=== PATIENT | female | born 1990 | race Caucasian/White ===

== ENCOUNTER 2024-12-12 13:27 | Outpatient (CLI) | payer OTHER, SELFPAY | END 2024-12-12 13:28 | disposition home or self-care (01) | LOC: SLEEP 13:33 | PROVIDERS: Referring Provider Nurse Practitioner Family; Visit Provider Internal Medicine Pulmonary Disease | DX: G47.33 Obstructive sleep apnea (adult) (pediatric) (principal); G47.36 Sleep related hypoventilation in conditions classified elsewhere | CPT/HCPCS: G0399 ==